=== PATIENT | male | born 2000 | race Caucasian/White ===

== ENCOUNTER 2021-09-21 11:12 | Emergency (ER) | payer OTHER ==
[~2021-09-21] VITALS: Ht 193 cm; Wt 105.6 kg
[~2021-09-21 11:12] MED LIST: AUGM875T28 PO; BACT800T5 PO
[2021-09-21] MEDS ORDERED: LIDOCAINE 1% MDV 20ML VIAL IM ONE (17:25)
[2021-09-21] MEDS ORDERED: BACTRIM 160MG/800MG DS TAB PO ONE (17:50)
[2021-09-21] MEDS ORDERED: BACT800T5 PO (17:53)
[2021-09-21 18:08] VITALS: BP 131/16
== END 2021-09-21 18:10 | disposition home or self-care (01) ==
LOC: M ED 11:12
DX: L05.91 Pilonidal cyst without abscess (principal)